=== PATIENT | male | born 1970 | race Two or more races ===

== ENCOUNTER 2018-01-27 18:06 | Emergency (ER) | payer SELFPAY ==
[~2018-01-27] VITALS: Ht 177.8 cm; Wt 124.7 kg
[2018-01-27] MEDS ORDERED: IPRATROPIUM BROM 0.5 MG/2.5ML INH SOL NEB ONE ×2 (20:30→21:00)
[2018-01-27] MEDS ORDERED: cefTRIAXone 1GM/10ml IVPUSH 10 ML IV ONE (20:30)
[2018-01-27] MEDS ORDERED: methylPREDNISolone SOD SUCC 125 MG/2 ML VL IM ONE (20:30)
[2018-01-27] MEDS ORDERED: cloNIDine HCL 0.1 MG TAB PO ONE (20:30)
[2018-01-27] MEDS ORDERED: ALBUTEROL SULF 2.5 MG/0.5ML(0.5%) NEB SOLN NEB ONE (20:30)
[2018-01-27] MEDS ORDERED: cefTRIAXone SOD 1,000 MG VL IM ONE (20:45)
[2018-01-27 21:29] VITALS: BP 152/95
== END 2018-01-27 21:31 | disposition home or self-care (01) ==
LOC: ER 18:06
DX: I10 Essential (primary) hypertension (principal); J45.909 Unspecified asthma, uncomplicated; Z76.0 Encounter for issue of repeat prescription
CPT/HCPCS: 94640; 96372; 99284; J0696; J2930